=== PATIENT | male | born 1990 | race Caucasian/White ===

== ENCOUNTER 2020-05-10 20:08 | Emergency (ER) | payer OTHER ==
[~2020-05-10] VITALS: Ht 190.5 cm; Wt 75.0 kg
[~2020-05-10 20:08] MED LIST: AMPH1CAP14
[2020-05-10 20:09] VITALS: BP 125/75
[2020-05-10] MEDS ORDERED: DOXY100C37 PO (22:13)
[2020-05-10] MEDS ORDERED: IBUPROFEN 600MG TAB PO ONE (22:15)
[2020-05-10] MEDS ORDERED: DOXYCYCLINE HYCLATE 100MG TABLET PO ONE (22:15)
--- NOTE | 2020-05-10 22:17 | REPVR ---
PROCEDURE INFORMATION: Exam: US Scrotum and US Duplex Artery and Vein, Scrotum, Complete Exam date and time: 05/10/2020 10:05 PM Age: 29 years old Clinical indication: Scrotum pain; Additional info: Pain/tender/selling TECHNIQUE: Imaging protocol: Real-time ultrasound of the scrotum. Real-time duplex ultrasound scan of the arterial and venous flow of the scrotum with B-mode, color Doppler flow and spectral waveform analysis. Complete exam. Duplex images required to evaluate vascular conditions. COMPARISON: No relevant prior studies available. FINDINGS: Right testicle: Right testis measures 4.1 x 2.6 x 3.3 cm. Normal echogenicity. Normal arterial waveforms on duplex color spectral Doppler analysis. Left testicle: Left testis measures 4.8 x 2.7 x 3.2 cm. Normal echogenicity. Normal arterial waveforms on duplex color spectral Doppler analysis. Epididymides: Heterogeneous echotexture of the bilateral epididymides with generalized hyperemia. Scrotum: Unremarkable. IMPRESSION: 1. Findings concerning for bilateral epididymitis. 2. No evidence of testicular torsion. Electronically signed by: Pierce Ram On 05/10/2020 22:17:22 PM
== END 2020-05-10 23:24 | disposition home or self-care (01) ==
LOC: M ED 20:08
DX: N45.1 Epididymitis (principal); F90.9 Attention-deficit hyperactivity disorder, unspecified type; Z79.899 Other long term (current) drug therapy; Z87.891 Personal history of nicotine dependence